=== PATIENT | female | born 1970 | race African-American/Black ===

== ENCOUNTER 2017-01-26 20:00 | Emergency (ER) | payer OTHER ==
[~2017-01-26] VITALS: Ht 165.1 cm; Wt 79.0 kg
[2017-01-26] MEDS ORDERED: IBUPROFEN 600MG TABLET PO ONE (23:00)
[2017-01-27 00:50] VITALS: BP 147/96
== END 2017-01-27 00:50 | disposition home or self-care (01) ==
LOC: ER 20:00
DX: S13.4XXA Sprain of ligaments of cervical spine, initial encounter (principal); V43.52XA Car driver injured in collision with other type car in traffic accident, initial encounter; Y93.89 Activity, other specified; Y92.488 Other paved roadways as the place of occurrence of the external cause
CPT/HCPCS: 72040; 81025; 99284